=== PATIENT | male | born 2000 | race Caucasian/White ===

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

== ENCOUNTER → 2020-05-15 | Outpatient (CLI) | payer BC | END | disposition home or self-care (01) | LOC: COVID19 12:29 | PROVIDERS: ATTEND Pediatrics | DX: Z20.828 Contact with and (suspected) exposure to other viral communicable diseases (principal) ==

== ENCOUNTER 2021-07-09 09:14 | Emergency (ER) | payer BC ==
[~2021-07-09] VITALS: Ht 182.8 cm; Wt 136.1 kg
[2021-07-09 09:21] VITALS: BP 120/70
== END 2021-07-09 10:22 | disposition left against medical advice (07) ==
LOC: ED 09:14
DX: R07.9 Chest pain, unspecified (principal); Z53.21 Procedure and treatment not carried out due to patient leaving prior to being seen by health care provider

== ENCOUNTER → 2021-07-19 | Outpatient (CLI) | payer BC ==
[2021-07-19 14:11] LABS: BASO % 0.4 % (0.0-1.0); EOS # 0.1 10*3/uL (0.0-0.4); EOS % 0.4 % (1.0-4.0); HEMATOCRIT 43.2 % (42.0-52.0); LYMPH # 3.2 10*3/uL (1.3-4.4); LYMPH % 28.8 % (27.0-41.0); MEAN CELL VOLUME 87.3 fl (80.0-94.0); MEAN CORPUSCULAR HGB 29.1 pg (27.0-31.0); MEAN CORPUSCULAR HGB CONC 33.3 g/dl (33.0-37.0); MEAN PLATELET VOLUME 9.8 fl (9.6-12.3); MONO # 1.1 10*3/uL (0.1-1.0); NEUT # 6.8 10*3/uL (2.3-7.9); NEUT % 60.1 % (47.0-73.0); PLATELET COUNT AUTOMATED 258 10*3/uL (130-400); RED BLOOD COUNT 4.95 10*6/uL (4.50-5.90); RED CELL DISTRI WIDTH 12.8 % (0-14.5); WHITE BLOOD COUNT 11.2 10*3/uL (4.8-10.8)
[2021-07-19 14:32] LABS: ALBUMIN 3.9 gm/dl (3.1-4.5); ALKALINE PHOSPHATASE 86 U/L (45-117); BUN 16 mg/dl (7-24); CHLORIDE 106 mmol/L (98-107); CHOLESTEROL 116 mg/dL (<200); CPK 181 U/L (39-308); CREATININE 1.05 mg/dL (0.70-1.30); LDL CHOLESTEROL 62 mg/dL (9-159); POTASSIUM 3.9 mmol/L (3.5-5.1); SGOT/AST 11 IU/L (3-35); SGPT/ALT 22 U/L (12-78); SODIUM 138 mmol/L (136-145); T3 UPTAKE 32 % (31-39); TOTAL PROTEIN 7.9 gm/dL (6.4-8.2); TRIGLYCERIDES 73 mg/dl (<150)
[2021-07-19 14:37] LABS: LDH 171 U/L (87-241)
== END | disposition home or self-care (01) ==
LOC: LAB 13:53
PROVIDERS: ATTEND Pediatrics
DX: M54.6 Pain in thoracic spine (principal); D64.9 Anemia, unspecified; E66.3 Overweight; R07.89 Other chest pain; M54.2 Cervicalgia; M25.511 Pain in right shoulder